=== PATIENT | female | born 1975 | race Caucasian/White ===

== ENCOUNTER 2025-02-15 20:53 | Emergency (ER) | payer MEDICAID ==
[~2025-02-15] VITALS: Ht 157.5 cm; Wt 70.0 kg
[2025-02-15 22:08] VITALS: O2SAT 98
[2025-02-15 22:15] VITALS: BP 122/74; PULSE 75; TEMP 36.8; O2SAT 95
[2025-02-15] MEDS: TETANUS, DIPHTHERIA, PERTUSSIS VAC/PF 0.5ML (>10YR OLD) IM ONE (23:36)
[2025-02-15 23:37] VITALS: TEMP 98.3
[2025-02-15] MEDS: ACETAMINOPHEN 500MG TABLET PO ONE (23:37)
[2025-02-16] MEDS: BACITRACIN ZINC OINT UDPKT TOP ONE (01:30)
[2025-02-16] MEDS: LIDOCAINE HCL/PF 1% 10 MG/ML 5ML VIAL INFIL ONE (01:30)
[2025-02-16] MEDS ORDERED: NAPR-1176 MT (02:25)
== END 2025-02-16 02:59 | disposition home or self-care (01) ==
LOC: ER 20:53
DX: S01.311A Laceration without foreign body of right ear, initial encounter (principal); Z79.1 Long term (current) use of non-steroidal anti-inflammatories (NSAID); W31.89XA Contact with other specified machinery, initial encounter; Y93.19 Activity, other involving water and watercraft; Y92.89 Other specified places as the place of occurrence of the external cause; Y99.8 Other external cause status
CPT/HCPCS: 70450; 90715; 90471; 99285; J2003; Z7610